=== PATIENT | female | born 1975 | race Caucasian/White ===

== ENCOUNTER 2021-08-27 05:04 | Inpatient (IN) ==
[2021-08-27] MEDS ORDERED: ceFAZolin 2,000 MG/50 ML DUPLEX IV ONE (05:16)
[2021-08-27] MEDS ORDERED: CITRIC ACID/SODIUM CITRATE 30 ML UDCUP PO ONE (05:16)
[2021-08-27] MEDS ORDERED: FAMOTIDINE 20 MG/2 ML VIAL IV ONE (05:30)
[2021-08-27] MEDS: LACTATED RINGERS 1,000 ML IV SCH ×2 (05:36→06:08)
[2021-08-27 05:58] LABS: Basophils % 0.4 % (0.0-0.8); Eosinophils # 0.1 10*3/uL (0.0-0.87); Eosinophils % 0.8 % (0.00-10.9); Hematocrit 31.8 VOL% (35.7-47.0); Hemoglobin 9.9 GM/DL (12.0-16.0); Immature Granulocytes % 1.7 %; Immature Granulocytes Absolute 0.14 #; Lymphocytes % 23.6 % (21.3-54.2); Mean Corpuscular HGB Conc 31.1 GM/DL (32-36); Mean Corpuscular Volume 86.6 FL (87-102); Mean Platelet Volume 11.5 FL (9.6-12.0); Monocytes % 8.8 % (1.7-12.7); NRBC # 0.02 10*3/uL; Neutrophils % 64.7 % (38.7-73.9); Platelet Count 211 T/CUMM (130-400); Red Blood Count 3.67 MC/CUMM (3.8-5.5); Red Cell Distribution Width 14.7 % (9.3-17.3); White Blood Count 8.3 T/CUMM (4-12)
[2021-08-27 06:20] LABS: Hypochromasia 1+; Microcytosis 1+; Ovalocytes Slight; Polychromasia Slight
[2021-08-27 06:21] LABS: Platelet Estimate Normal
[2021-08-27 06:32] LABS: Albumin 2.8 G/DL (3.4-5.0); Bilirubin,Total 0.7 MG/DL (0.20-1.00); Calcium 9.4 MG/DL (8.5-10.1); Osmolality,Calculated 269.1 MOS/KG (273-304); Potassium 3.9 MMOL/L (3.5-5.1); Total Protein 6.8 G/DL (6.4-8.2)
[2021-08-27] MEDS ORDERED: METOCLOPRAMIDE 10 MG/2 ML VIAL ONE (06:53)
[2021-08-27] MEDS ORDERED: BUPIVACAINE SPINAL 0.75% 2 ML AMP SPINAL ONE (06:53)
[2021-08-27] MEDS ORDERED: LACTATED RINGERS 1,000 ML IV ONE (06:53)
[2021-08-27] MEDS ORDERED: ONDANSETRON 4 MG/2 ML VIAL ONE (06:53)
[2021-08-27] MEDS ORDERED: TRANEXAMIC ACID 1,000 MG/10 ML VIAL ONE (06:59)
[2021-08-27] MEDS ORDERED: OXYTOCIN 10 UNIT/ML VIAL ONE (06:59)
[2021-08-27] MEDS ORDERED: miSOPROStoL 200 MCG TABLET ONE (06:59)
[2021-08-27] MEDS ORDERED: METHYLERGONOVINE 0.2 MG/1 ML AMP ONE (07:00)
[2021-08-27] MEDS ORDERED: CARBOPROST TROMETHAMINE 250 MCG/ML AMP IM ONE (07:00)
[2021-08-27] MEDS ORDERED: OXYTOCIN/LR 20 UNIT/1,000 ML BAG IV ONE ×3 (07:00→10:25)
[2021-08-27 07:03] LABS: INR 0.9; PT Patient Result 10.6 SECS (10.5-12.0); Partial Thromboplastin Time 26.6 SECS (23.8-32.1)
[2021-08-27] MEDS ORDERED: PHENYLEPHRINE 10 MG/1 ML VIAL IV ONE (07:19)
[2021-08-27] MEDS ORDERED: SODIUM CHLORIDE 0.9% 100 ML IV ONE (07:39)
[2021-08-27 08:17] LABS: Cord Arterial Blood HCO3 21.8 MMOL/L
[2021-08-27 08:20] LABS: Cord Venous Blood HCO3 19.5 MMOL/L; Cord Venous Blood PCO2 53.2 MMHG; Cord Venous Blood PO2 < 17
[2021-08-27 08:21] LABS: Bacteria,Urine Occasional /HPF (Few); Bilirubin,Urine Negative (Negative); Blood, Urine Small mg/dL (Negative); Glucose,Urine (UA) Negative (Negative); Ketones,Urine Negative (Negative); Mucus,Urine Occasional /LPF (Occasional); Nitrite,Urine Negative (Negative); Protein,Urine Negative; RBC,Urine 4 /HPF (0-4); Squamous Epithelial Cell,Urine Occasional /HPF (0-10); Urine Appearance CLEAR (Clear); Urine Color Straw (Yellow); Urine Specific Gravity 1.014 (1.001-1.035); Urine Urobilinogen < 2.0 EU/DL (0.2-1.0)
[2021-08-27] MEDS ORDERED: ACETAMINOPHEN 500 MG TABLET PO SCH (09:30)
[2021-08-27] MEDS ORDERED: ONDANSETRON 4 MG/2 ML VIAL IV PRN (10:25)
[2021-08-27] MEDS ORDERED: RHO(D) IMMUNE GLOBULIN 300 MCG SYRINGE IM ONE (10:25)
[2021-08-27] MEDS ORDERED: DIPH/TET/ACEL PERT BOOSTER VACCINE 0.5 ML VIAL IM ONE (10:25)
[2021-08-27] MEDS ORDERED: MEASLES/MUMPS/RUBELLA VACCINE 0.5 ML VIAL SUBCUT ONE (10:25)
[2021-08-27] MEDS ORDERED: HYDROCORTISONE 2.5% RECTAL CREAM 30 GM TUBE TOP PRN (10:25)
[2021-08-27] MEDS ORDERED: WITCH HAZEL PADS 100/JAR TOP PRN (10:25)
[2021-08-27] MEDS ORDERED: BISACODYL 10 MG SUPP RECTAL PRN (10:25)
[2021-08-27] MEDS ORDERED: LANOLIN 50% CREAM 0.3 OZ TUBE TOP PRN (10:25)
[2021-08-27] MEDS ORDERED: ACETAMINOPHEN 325 MG TABLET PO PRN (10:25)
[2021-08-27] MEDS ORDERED: BENZOCAINE 20%/MENTHOL 0.5% SPRAY 56 GM CAN TOP PRN (10:25)
[2021-08-27] MEDS: oxyCODONE/ACETAMINOPHEN 5-325 MG TABLET PO PRN (10:54)
[2021-08-27] MEDS: ACETAMINOPHEN 500 MG TABLET PO SCH ×3 (11:25→23:17)
[2021-08-27] MEDS: KETOROLAC 30 MG/1 ML VIAL IV SCH ×2 (13:54→19:58)
[2021-08-28] MEDS ORDERED: KETOROLAC 30 MG/1 ML VIAL IV ONE (04:01)
[2021-08-28 06:30] LABS: Basophils % 0.2 % (0.0-0.8); Eosinophils # 0.1 10*3/uL (0.0-0.87); Hematocrit 25.4 VOL% (35.7-47.0); Hemoglobin 7.8 GM/DL (12.0-16.0); Immature Granulocytes % 0.8 %; Immature Granulocytes Absolute 0.07 #; Lymphocytes # 1.3 10*3/uL (1.4-4.0); Lymphocytes % 15.7 % (21.3-54.2); Mean Corpuscular HGB Conc 30.7 GM/DL (32-36); Mean Corpuscular Volume 88.5 FL (87-102); Mean Platelet Volume 11.2 FL (9.6-12.0); Monocytes % 7.1 % (1.7-12.7); Neutrophils % 75.2 % (38.7-73.9); Platelet Count 159 T/CUMM (130-400); Red Blood Count 2.87 MC/CUMM (3.8-5.5); Red Cell Distribution Width 14.8 % (9.3-17.3); White Blood Count 8.4 T/CUMM (4-12)
[2021-08-28] MEDS: ACETAMINOPHEN 500 MG TABLET PO SCH (06:51)
[2021-08-28] MEDS: DOCUSATE SODIUM 100 MG CAPSULE PO SCH ×3 (07:36→20:16)
[2021-08-28] MEDS: oxyCODONE/ACETAMINOPHEN 5-325 MG TABLET PO PRN ×3 (08:22→22:33)
[2021-08-28] MEDS: IBUPROFEN 800 MG TABLET PO PRN ×2 (14:05→22:34)
[2021-08-28] MEDS ORDERED: SIMETHICONE CHEW 125 MG TABLET PO PRN (20:09)
[2021-08-28] MEDS ORDERED: SIMETHICONE CHEW 80 MG TABLET PO PRN (20:14)
[2021-08-28] MEDS: FERROUS SULFATE 325 MG TABLET PO SCH (20:16)
[2021-08-28] MEDS ORDERED: MAGNESIUM HYDROXIDE SUSP 30 ML UDCUP PO PRN (22:18)
[2021-08-29] MEDS: FERROUS SULFATE 325 MG TABLET PO SCH (08:58)
[2021-08-29] MEDS: DOCUSATE SODIUM 100 MG CAPSULE PO SCH (08:58)
[2021-08-29] MEDS: oxyCODONE/ACETAMINOPHEN 5-325 MG TABLET PO PRN (09:02)
[2021-08-29 12:24] VITALS: BP 110/66
== END 2021-08-29 11:05 | disposition home or self-care (01) | DRG 784 ==
LOC: N.LD 05:04 → N.OB 08-28 10:30
PROVIDERS: ADMIT Specialist; ATTEND Specialist